=== PATIENT | female | born 1945 | race Caucasian/White ===

== ENCOUNTER 2019-06-17 22:25 | Emergency (ER) | payer MEDICARE, OTHER ==
[~2019-06-17] VITALS: Ht 157.5 cm; Wt 70.3 kg
[~2019-06-17 22:25] MED LIST: ASPIRIN81 MG PO; LANTUS100 UNITS/ SUB-Q; LIPITOR10 MG; NOVOLOG100 UNIT/1 SUB-Q; ONDANSETRON ODT8 MG PO; TIROSINT25 MCG PO; VITAMIN D-32000 UNIT PO
[2019-06-17] MEDS ORDERED: GLIMEPIRIDE4 MG PO (22:53)
[2019-06-17] MEDS ORDERED: OMEPRAZOLE20 MG PO (22:53)
[2019-06-17] MEDS ORDERED: LEXAPRO10 MG PO (22:55)
[2019-06-17] MEDS ORDERED: SYNTHROID75 MCG PO (22:56)
[2019-06-17] MEDS ORDERED: PRILOSEC OTC20 MG PO (22:56)
[2019-06-18] MEDS ORDERED: ZOFRAN4 MG PO (00:32)
== END 2019-06-18 00:46 | disposition home or self-care (01) ==
LOC: ED 22:25
DX: A08.4 Viral intestinal infection, unspecified (principal); K22.6 Gastro-esophageal laceration-hemorrhage syndrome; E11.9 Type 2 diabetes mellitus without complications; Z79.4 Long term (current) use of insulin
CPT/HCPCS: 51701; 80053; 81001; 83690; 85025; 99284-25; C9113; J2405; J7030

== ENCOUNTER 2021-04-24 19:45 | Emergency (ER) | payer MEDICARE, OTHER ==
[~2021-04-24] VITALS: Ht 157.5 cm; Wt 68.0 kg
[~2021-04-24 19:45] MED LIST changes: +GLIMEPIRIDE4 MG PO; +LEXAPRO10 MG PO; +OMEPRAZOLE20 MG PO; +PRILOSEC OTC20 MG PO; +SYNTHROID75 MCG PO; +ZOFRAN4 MG PO
== END 2021-04-24 22:05 | disposition home or self-care (01) ==
LOC: ED 19:45
DX: E11.65 Type 2 diabetes mellitus with hyperglycemia (principal); M79.7 Fibromyalgia; Z88.6 Allergy status to analgesic agent; Z88.8 Allergy status to other drugs, medicaments and biological substances; Z79.84 Long term (current) use of oral hypoglycemic drugs; Z79.4 Long term (current) use of insulin; Z79.82 Long term (current) use of aspirin; Z79.890 Hormone replacement therapy; Z79.899 Other long term (current) drug therapy
CPT/HCPCS: 80048; 81001; 82010; 82803; 85025; 99284